=== PATIENT | male | born 1965 | race Two or more races ===

== ENCOUNTER 2017-08-13 12:33 | Emergency (ER) | payer OTHER ==
[~2017-08-13] VITALS: Ht 182.9 cm; Wt 146.0 kg
[2017-08-13] MEDS ORDERED: METOCLOPRAMIDE HCL 10MG/2ML VIAL IV ONE (13:00)
[2017-08-13] MEDS ORDERED: FAMOTIDINE 20MG/2ML VIAL IV ONE (13:00)
[2017-08-13] MEDS ORDERED: SODIUM CHLORIDE 0.9% 1,000 ML IV ONE (13:00)
[2017-08-13 13:16] LABS: BASOPHILS % 0.9 % (0.0-2.0); EOSINOPHILS % 0.2 % (0.0-5.0); HEMATOCRIT. 46.2 % (42.0-52.0); HEMOGLOBIN. 15.8 g/dL (14.0-18.0); LYMPHOCYTES % 12.8 % (20.0-50.0); MEAN CORPUSCULAR HEMOGLOBIN 30.6 pg (28.0-32.0); MEAN CORPUSCULAR VOLUME 89.6 fL (80.0-94.0); MEAN PLATELET VOLUME 7.7 fl (7.4-10.4); MONOCYTES % 2.5 % (2.0-8.0); NEUTROPHILS % 83.6 % (40.0-76.0); PLATELET 296 x1000/uL (130-400); RED BLOOD CELL COUNT 5.16 mill/uL (4.7-6.1); RED CELL DISTRIBUTION WIDTH 14.9 % (11.6-14.6)
[2017-08-13 13:23] LABS: CHLORIDE 106 mEq/L (98-107); PROTHROMBIN TIME 10.4 sec (9.4-11.6)
[2017-08-13 14:51] LABS: CLARITY URINE CLEAR (CLEAR); COLOR URINE YELLOW (YELLOW); KETONES URINE NEGATIVE (NEGATIVE); LEUKOCYTE ESTERASE URINE NEGATIVE (NEGATIVE); NITRITE URINE NEGATIVE (NEGATIVE); OCCULT BLOOD URINE NEGATIVE (NEGATIVE); PROTEIN URINE TRACE (NEGATIVE); SPECIFIC GRAVITY URINE 1.028 (1.005-1.030); UROBILINOGEN URINE 0.2 E.U./dL (0.2-1.0)
[2017-08-13] MEDS ORDERED: HYDRALAZINE 20MG/ML VIAL IV ONE ×2 (15:45→17:30)
[2017-08-13 18:39] VITALS: BP 188/115
[2017-08-13] MEDS ORDERED: ACETAMINOPHEN 325MG TABLET PO ONE (20:00)
== END 2017-08-13 20:30 | disposition home or self-care (01) ==
LOC: ER 14:12
DX: R11.2 Nausea with vomiting, unspecified (principal); R07.89 Other chest pain; I10 Essential (primary) hypertension; R06.02 Shortness of breath; R05 Cough; K21.9 Gastro-esophageal reflux disease without esophagitis; F17.200 Nicotine dependence, unspecified, uncomplicated; Z88.8 Allergy status to other drugs, medicaments and biological substances; Z91.013 Allergy to seafood; Z98.890 Other specified postprocedural states
CPT/HCPCS: 36415; 71045; 80053; 81003; 83690; 84484; 85025; 85610; 93005; 96361; 96374; 96375; 96376; 99285; J0360; J2765; J3490; J7030; Z7610